=== PATIENT | female | born 1990 | race Caucasian/White ===

== ENCOUNTER 2016-11-04 23:35 | Inpatient (IN) | payer OTHER ==
[~2016-11-04] VITALS: Ht 152.4 cm; Wt 64.5 kg
--- NOTE | 2016-11-05 19:18 | ER ---
ADMIT: 11/05/2016 RM/LOC: 519 [facility] MR#: [id number] [id number] [place], [place] [address] GIULIANA NUR 111 [facility] [address] [place] [address] Emergency Room Report SEX: F AGE: 26 : 1990 DATE: 11/04/2016 HISTORY OF PRESENT ILLNESS: The patient is a 26-year-old female with a past medical history of Crohn disease, status post bowel resection, came to the ER with chief complaint of periumbilical abdominal pain, which per the patient is very similar to previous Crohn flare-ups, the pain has started today again, and the patient states the last flare-up of the Crohn was 6 months ago. Pain is sharp, continuous, increases with palpation of the periumbilical area. Last bowel movement was today normal. The patient denies any vomiting, but says that she has nausea. PHYSICAL EXAMINATION: VITAL SIGNS: The patient is afebrile in the ER, in [id number] distress. HEAD AND NECK: Noncontributory. CHEST: Clear to auscultation bilaterally. HEART: Normal S1, S2. ABDOMEN: Tender in periumbilical area without rebound or guarding. The patient has no CVA tenderness. test was negative, the patient had white BC of 10.1 with a hemoglobin of 12.3 and platelet of 314,000, lactic acid was 1, and urine was negative for any infections or bleeding, CMP showed lipase of 71, and the rest of it was noncontributory, pain was mildly controlled with morphine, the patient received Dilaudid 1 mg, which was repeated for pain control, CT of abdomen pelvis to rule out bowel obstruction versus Crohn/colitis was done and was positive for colitis and bowel wall thickness. CT scan did not show any free air or fluid in the abdomen. The patient received another dose of Dilaudid for pain control, the patient was admitted for intractable abdominal pain, colitis, history of Crohn disease. Ori Robison MD/ kalia JOB #: [id number] CC: Alan Galvan MD, Attending Physician Alan Galvan MD, Family Physician
[2016-11-09] MEDS ORDERED: DELZICOL400 M1 PO (12:34)
[2016-11-09] MEDS ORDERED: LOVENOX DP40 MG/0.4 SQ (12:35)
[2016-11-09] MEDS ORDERED: LEXAPRO DPS10 MG PO (12:35)
[2016-11-09] MEDS ORDERED: [UNRECOGNIZED DRUG - OTHER] PO (12:35)
[2016-11-09] MEDS ORDERED: [UNRECOGNIZED DRUG - OTHER] IV (12:37)
[2016-11-09] MEDS ORDERED: NORMAL SALINE FL5 ML IV (12:38)
[2016-11-09] MEDS ORDERED: ULTRAM DPS50 MG PO (12:39)
[2016-11-09] MEDS ORDERED: TYLENOL DPS325 MG PO (12:39)
[2016-11-09] MEDS ORDERED: SOLU-MEDROL2 GM IV (12:39)
[2016-11-09] MEDS ORDERED: MAALOX DPS30 ML PO (12:39)
[2016-11-09] MEDS ORDERED: BENADRYL-DPS25 MG PO (12:39)
[2016-11-09] MEDS ORDERED: DILAUDID-DPS2 MG/ML IV ×2 (12:40)
[2016-11-09] MEDS ORDERED: ZOFRAN DPS4 MG/2 ML IV (12:41)
[2016-11-09] MEDS ORDERED: PHENERGAN50 MG/1 ML IV ×2 (12:41→12:42)
--- NOTE | 2016-11-13 01:17 | HP ---
ADMIT: 11/05/2016 RM/LOC: 519 [facility] MR#: [id number] [address] [address] GIULIANA NUR 111 [facility] [address] [place] [address] History and Physical SEX: F AGE: 26 : 1990 DATE OF SERVICE: CHIEF COMPLAINT: Abdominal pain with nausea and vomiting. HISTORY OF PRESENT ILLNESS: Giuliana is a 26-year-old, white female, with Crohn's, who sees Dr. Galvan and Dr. Nogueira. She was diagnosed with Crohn disease in 2013. She has been seeing Dr. Nogueira since I believe 2014. About a year ago, was changed over to Remicade and has been also taking Apriso and 6- mercaptopurine. She previously had taken sulfasalazine. She had been in her usual state of health when at 9:00 she suddenly developed abdominal pain with nausea and vomiting. Just did not feel well. No diarrhea. She eventually presented to the emergency room as she could not get the pain under control. This is very similar to her previous exacerbations of Crohn's. No one is ill at home. She has not been around anybody with gastroenteritis that she is able to tell. She presented to the emergency room, and a CT scan was done, and there was some question of a bit of colitis. Radiology over-read by a 2nd radiologist did not feel there was any exacerbation of Crohn's. Regardless, due to the refractory pain and inability to keep medications or food down, she was admitted. PAST MEDICAL HISTORY: Crohn disease, diagnosed on laparoscopic appendectomy status post segmental ileal colectomy in 2013. ADHD. Anemia of chronic disease. Headaches. MEDICATIONS: 1. Escitalopram 5 mg daily. 2. Tramadol 50 mg q.6 p.r.n. 3. Apriso 0.375 g take 1.5 g or 4 caps daily. 4. 6-mercaptopurine 50 mg daily. 5. Calcium with vitamin D daily. 6. vitamin daily. 7. Tramadol 50 q.6 p.r.n. ALLERGIES: SULFA CAUSING A RASH. SOCIAL HISTORY: I believe she is single. I do not think she is a smoker. Previous drug use in the past. I do not think she is doing anything currently. FAMILY HISTORY: With no one else having Crohn disease. REVIEW OF SYSTEMS: Headaches on occasion. Back pain when her abdominal cramps get to be pretty bad. test was negative. PHYSICAL EXAMINATION: VITAL SIGNS: Include blood pressure 114/59, pulse 79, respirations 18, and temp 97.5. GENERAL: This is a well-developed, well-nourished, white female, who is actually pretty uncomfortable due to abdominal pain and her nausea and vomiting. ADMIT: 11/05/2016 RM/LOC: 519 [facility] MR#: [id number] [address] [address] [facility] [place] [address] History and Physical SEX: F AGE: 26 : 1990 SKIN: Warm and dry. No obvious rashes, although she has had problems in the past. HEENT: Normocephalic and atraumatic. Anicteric. Mucous membranes are moist. NECK: Supple. LUNGS: Clear. CARDIOVASCULAR: Regular without murmur or gallop. ABDOMEN: Soft, but a little bit tender to deep palpation. GENITOURINARY/RECTAL: Deferred. EXTREMITIES: With no cyanosis, clubbing, or edema. No edema. IMPRESSION: 1. Abdominal pain with nausea and vomiting. 2. Crohn's status post previous segmental ileocolectomy in 2013. 3. Headaches. DISCUSSION: She tells me and I believe that Dr. Nogueira does not want her to get on steroids if we can avoid it. Maybe just some hydration and some bowel rest will help. We will just do that, give pain medications and hopefully not start anything up. PLAN: 1. IV fluids. 2. Antiemetics. 3. Hold on steroids for now. 4. Increase activity. 5. See chart. 6. Diet as she tolerates. Rachel Peralta MD/ kalia JOB #: [id number] CC: Alan Galvan, Attending Physician Alan Galvan, Family Physician Gabriele Nogueira MD
--- NOTE | 2016-11-17 12:50 | DS ---
ADMIT: 11/05/2016 RM/LOC: 519 [facility] MR#: [id number] [address] [facility] [address] [place], [place] [address] GIULIANA NUR [address] [facility] [address] [place] [address] Discharge Summary SEX: F AGE: 26 : 1990 ADMISSION DATE: 11/05/2016 DISCHARGE DATE: 11/08/2016 DISCHARGE/TRANSFER DIAGNOSES: 1. Crohn's disease with flare. 2. History of colonic anastomotic stricture. 3. Depression/ADD (attention deficit disorder). 4. Nausea, resolving. CONSULTATIONS: None. PROCEDURES: None. REASON FOR ADMISSION: A very pleasant 26-year-old female who presents to [facility] Room on the day of admission with complaints of abdominal pain, nausea and vomiting. She had not been eating well and given her extensive history of Crohn's she was admitted for further evaluation and treatment. For complete details, please see H and P dictated on the day of admission. HOSPITAL COURSE: At the time of admission, the patient underwent CT scanning. She was initially made n.p.o. and started on IV fluids and then actually peripheral nutrition. She was given antiemetics and pain medications. She underwent imaging that did not show any obvious obstruction. I did visit with her bobbin loose end finder. Her sedimentation rate and CRP were fine. However, we did try some IV steroids. He was very concerned that there was an anastomotic stricture and that was probably what was giving her a lot of her discomfort. We did give it 24 hours with IV steroids and symptoms just did not improve. On 11/08 she was a little bit more distended and she had more pain over night. I discussed the case with Dr. Heron Nogueira, gastroenterology from [place], [place] and plans were made to transfer the patient to [facility] under the care of their hospitalist service for admission and gastroenterology evaluation and likely endoscopy with balloon dilatation of her colonic stricture that probably was giving her problems, but they would evaluate her further prior to planning a procedure. At the time of discharge, she was stable and ready for transfer to [facility]. Her medications are per discharge medication list. She is currently as mentioned stable for transfer. Alan Galvan MD/ mio JOB #: [id number] CC: Alan Galvan MD, Attending Physician Alan Galvan MD, Family Physician
[2017-05-18] MEDS ORDERED: LEXAPRO DPS10 MG PO (17:28)
[2017-05-18] MEDS ORDERED: PRENATAL VITAM1 EAC6 PO (17:28)
[2017-05-18] MEDS ORDERED: MERCAPTOPURINE50 MG PO (17:29)
[2017-05-18] MEDS ORDERED: APRISO0.375 GM PO (17:29)
[2017-05-18] MEDS ORDERED: PROVENTIL HFA6.7 GM IH (17:29)
[2017-05-18] MEDS ORDERED: MIRALAX PACKET17 GM PO (17:29)
[2017-05-18] MEDS ORDERED: IMITREX25 MG PO (17:30)
== END 2016-11-08 10:21 | disposition short-term general hospital (02) | DRG 386 ==
LOC: ER 23:35 → 5MS 11-05 02:36
PROVIDERS: ADMIT Internal Medicine
DX: K50.90 Crohn's disease, unspecified, without complications (principal); K91.89 Other postprocedural complications and disorders of digestive system; D63.8 Anemia in other chronic diseases classified elsewhere; F32.9 Major depressive disorder, single episode, unspecified; F90.9 Attention-deficit hyperactivity disorder, unspecified type; G43.909 Migraine, unspecified, not intractable, without status migrainosus

== ENCOUNTER → 2016-11-29 | Outpatient (CLI) | payer OTHER ==
[~2016-11-29] MED LIST: APRISO0.375 GM PO; BENADRYL-DPS25 MG PO; DELZICOL400 M1 PO; DILAUDID-DPS2 MG/ML IV; IMITREX25 MG PO; LEXAPRO DPS10 MG PO; LOVENOX DP40 MG/0.4 SQ; MAALOX DPS30 ML PO; MERCAPTOPURINE50 MG PO; MIRALAX PACKET17 GM PO; NORMAL SALINE FL5 ML IV; PHENERGAN50 MG/1 ML IV; PRENATAL VITAM1 EAC6 PO; PROVENTIL HFA6.7 GM IH; SOLU-MEDROL2 GM IV; TYLENOL DPS325 MG PO; ULTRAM DPS50 MG PO; ZOFRAN DPS4 MG/2 ML IV; [UNRECOGNIZED DRUG - OTHER] IV; [UNRECOGNIZED DRUG - OTHER] PO
== END | disposition home or self-care (01) ==
LOC: RAD.S 07:48
DX: K50.018 Crohn's disease of small intestine with other complication (principal); Z79.899 Other long term (current) drug therapy